=== PATIENT | female | born 1975 | race Caucasian/White ===

== ENCOUNTER 2021-09-24 04:48 | Emergency (ER) | payer OTHER ==
[~2021-09-24] VITALS: Ht 162.6 cm; Wt 66.3 kg
[2021-09-24 04:56] VITALS: BP 111/49
--- NOTE | 2021-09-24 05:02 | NUR ---
pt taken to bed 09.
[2021-09-24] MEDS ORDERED: KETOROLAC 15 MG/ML VIAL IM ONE (05:15)
[2021-09-24] MEDS ORDERED: NACL 0.9% 1,000 ML IV ONE (05:25)
[2021-09-24] MEDS ORDERED: KETOROLAC 15 MG/ML VIAL IVP ONE (05:25)
--- NOTE | 2021-09-24 05:46 | NUR ---
PT TAKEN TO CT
--- NOTE | 2021-09-24 05:47 | NUR ---
blood sample collected and handed to supervisor labor gang
[2021-09-24 05:49] LABS: BASOPHILS % (AUTO) 0.4 % (0.0-2.0); EOSINOPHILS % (AUTO) 0.3 % (0.0-4.0); HEMOGLOBIN 9.9 g/dL (12.0-16.0); LYMPHOCYTES # (AUTO) 1.5 K/uL (2.5-16.5); LYMPHOCYTES % (AUTO) 18.1 % (20.5-51.1); MEAN CORPUSCULAR HEMOGLOBIN 30 pg (27-31); MEAN CORPUSCULAR HGB CONC 33 g/dL (33-37); MEAN CORPUSCULAR VOLUME 91.2 fL (80-94); MONOCYTES # (AUTO) 0.6 K/uL (0.8-1.0); MONOCYTES % (AUTO) 6.8 % (1.7-9.3); NEUTROPHILS # (AUTO) 6.2 K/uL (1.8-7.7); NEUTROPHILS % (AUTO) 74.4 % (42.2-75.2); PLATELET COUNT (AUTO) 260 K/uL (140-450); RED BLOOD CELL COUNT(AUTO) 3.29 MIL/uL (4.20-5.40); RED CELL DISTRIBUTION WIDTH 14.2 % (11.6-13.7); WHITE BLOOD COUNT (AUTO) 8.3 K/uL (4.8-10.8)
--- NOTE | 2021-09-24 05:51 | NUR ---
Note undone in EDM - 09/24/21 at 0715 by [email or web address] 46 y/o female bibs, c/o 02/28 rt pelvic pain xlast week. pt went to another ER and was told she has an ovarian cyst to the rt side. pt was instructed to follow up with obgyn but states she cant wait that long due to pain. reports burning urination. +diarrhea. skin is normal, warm, and dry. pt has unlabored breathing and able to ambulate without assistance. pt is a/ox3, gcs-15. pt is sitting in bed in lowest setting, with hob raised and rails up x2. spouse at bedside. denies hx allergy to keflex
--- NOTE | 2021-09-24 05:51 | NUR ---
46 y/o female bibs, c/o 02/28 rt pelvic pain xlast week. pt went to another ER and was told she has an ovarian cyst to the rt side. pt was instructed to follow up with obgyn but states she cant wait that long due to pain. reports burning urination. +diarrhea. skin is normal, warm, and dry. pt has unlabored breathing and able to ambulate without assistance. pt is a/ox4, gcs-15. pt is sitting in bed in lowest setting, with hob raised and rails up x2. spouse at bedside. denies hx allergy to keflex
--- NOTE | 2021-09-24 05:52 | NUR ---
PT RETURN FROM CT
[2021-09-24 06:04] LABS: ALBUMIN 3.2 g/dL (3.4-5.0); ANION GAP 11.7 (8-16); CARBON DIOXIDE 24.8 mmol/L (21-32); CREATININE 0.6 mg/dL (0.6-1.3); POTASSIUM 3.5 mmol/L (3.5-5.1); TOTAL BILIRUBIN 0.5 mg/dL (0.0-1.0)
[2021-09-24] MEDS ORDERED: MORPHINE SULFATE 4 MG/ML SYR IVP ONE (06:10)
[2021-09-24] MEDS ORDERED: ONDANSETRON 4 MG/2 ML VIAL IVP ONE (06:10)
[2021-09-24 06:19] LABS: APPEARANCE,URINE CLEAR (CLEAR); BILIRUBIN,URINE NEGATIVE (NEGATIVE); BLOOD, URINE TRACE-I (NEGATIVE); COLOR,URINE YELLOW (YELLOW); LEUKOCYTE ESTERASE ,URINE TRACE (NEGATIVE); NITRITE, URINE NEGATIVE (NEGATIVE); UGLUCOSE NEGATIVE (NEGATIVE)
[2021-09-24 06:33] LABS: RBC,URINE 0-5 /HPF (0-5); TRICHOMONAS,URINE None Seen /HPF (None Seen); WBC,URINE 0-5 /HPF (0-5); YEAST,URINE None Seen /HPF (None Seen)
[2021-09-24 06:34] LABS: CALCIUM OXALATE CRYSTALS,UR None Seen /HPF (None Seen); COARSE GRANULAR CASTS,URINE None Seen /LPF (None Seen); FINE GRANULAR CASTS,URINE None Seen /LPF (None Seen); HYALINE CASTS, URINE None Seen /LPF (None Seen); OTHER CASTS, URINE None Seen /LPF (None Seen); OTHER CRYSTALS,URINE None Seen /HPF (None Seen); RED BLOOD CELL CASTS,URINE None Seen /LPF (None Seen); TRIPLE PHOSPHATE CRYSTAL,UR None Seen /HPF (None Seen); URIC ACID CRYSTALS,URINE None Seen /HPF (None Seen); URINE AMORPHOUS URATE None Seen /HPF (None Seen); WAXY CASTS,URINE None Seen /LPF (None Seen)
--- NOTE | 2021-09-24 07:18 | NUR ---
TRANSFER OF CARE REPORT GIVEN TO FRANKO FALLON
--- NOTE | 2021-09-24 07:20 | NUR ---
RECIEVED REPORT FROM NAGI
[2021-09-24] MEDS ORDERED: ACET-8386 PO (08:10)
[2021-09-24] MEDS ORDERED: FAMO-92 PO (08:11)
[2021-09-24 08:26] VITALS: BP 124/73
--- NOTE | 2021-09-24 08:27 | NUR ---
Patient discharged with v/s stable. Written and verbal after care instructions given and explained. Patient alert, oriented and verbalized understanding of instructions. Ambulatory with steady gait. All questions addressed prior to discharge. ID band removed. Patient advised to follow up with PMD. Rx of PEPCID AND HYDROCODON-ACETAMINOPHEN given. Patient educated on indication of medication including possible reaction and side effects. Opportunity to ask questions provided and answered.
== END 2021-09-24 08:26 | disposition home or self-care (01) ==
LOC: MED 04:48
DX: N83.201 Unspecified ovarian cyst, right side (principal)
CPT/HCPCS: 36415; 74176; 80053; 81001; 81025; 83690; 85025; 87086; 96361; 96374; 96375; 99285; J1885; J2270; J2405; J7030

== ENCOUNTER 2022-03-16 13:21 | Emergency (ER) | payer OTHER ==
[~2022-03-16] VITALS: Ht 162.6 cm; Wt 68.9 kg
[~2022-03-16 13:21] MED LIST: ACET-8386 PO; FAMO-92 PO
[2022-03-16 14:54] VITALS: BP 136/81
--- NOTE | 2022-03-16 15:10 | NUR ---
46/F PRESENTS TO ED WITH C/O RIGHT WRIST PAIN X1 MONTH. WAS SEEN AT URGENT CARE YESTERDAY AND GIVEN PREDNISONE, A SPLINT AND DX WITH TENDONITIS. TOLD TO COME TO ED IF PAIN CONTINUED, DENIES INJURY.
[2022-03-16] MEDS ORDERED: IBUP-2213 PO (15:17)
[2022-03-16 15:30] VITALS: BP 136/81
--- NOTE | 2022-03-16 15:30 | NUR ---
Patient discharged with v/s stable. Written and verbal after care instructions ABOUT CARPAL TUNNEL SYNDROME given and explained. Patient alert, oriented and verbalized understanding of instructions. Ambulatory with steady gait. All questions addressed prior to discharge. ID band removed. Patient advised to follow up with PMD. Rx of IBUPROFEN given. Patient educated on indication of medication including possible reaction and side effects. Opportunity to ask questions provided and answered.
== END 2022-03-16 15:30 | disposition home or self-care (01) ==
LOC: MED 13:21
DX: M25.531 Pain in right wrist (principal); Z88.1 Allergy status to other antibiotic agents; Z79.899 Other long term (current) drug therapy
CPT/HCPCS: 99282